=== PATIENT | male | born 1990 | race Caucasian/White ===

== ENCOUNTER 2019-06-12 21:49 | Emergency (ER) | payer SELFPAY ==
[~2019-06-12] VITALS: Ht 182.9 cm; Wt 83.9 kg
[2019-06-12 21:55] VITALS: BP_SYST 145
[2019-06-13 03:52] VITALS: BP_SYST 128
== END 2019-06-13 03:52 | disposition home or self-care (01) ==
LOC: SED 21:49
DX: S09.8XXA Other specified injuries of head, initial encounter (principal); W18.39XA Other fall on same level, initial encounter; Y93.89 Activity, other specified; Y92.89 Other specified places as the place of occurrence of the external cause; Y99.8 Other external cause status
CPT/HCPCS: 70450-TC; 99284